=== PATIENT | male | born 1965 | race Caucasian/White ===

== ENCOUNTER 2019-12-03 08:31 | Day surgery (SDC) | payer OTHER ==
[~2019-12-03] VITALS: Ht 175.3 cm; Wt 72.9 kg
[~2019-12-03 08:31] MED LIST: AMOX500 PO; ASPI325EC; CRUTCH2 USE; HYDACE5 PO; HYDACE5325 PO; RXCLIN PO
--- NOTE | 2019-12-03 10:07 | NUR ---
Ambulatory in Day Surgery History, Chart, Medications and Allergies reviewed before start of procedure.Lungs clear T/O to Auscultation. Patient confirms NPO status and agrees with scheduled surgery. Patient reports completing Chlorhexadine shower X2 prior to admission to hospital.Surgical site prepped with 2% Chlorhexidine cloth wipe.
--- NOTE | 2019-12-03 12:16 | NUR ---
ARRIVED FROM PACU VSS DENIES PAIN WIDE AWAKE. SCANT DRAINAGE ON GAUZE
--- NOTE | 2019-12-03 12:25 | NUR ---
TURNED CARE OVER TO JESSY MEDINA
--- NOTE | 2019-12-03 12:29 | NUR ---
TOOK REPORT FROM CHINYERE OWENS. PT TOLERATING ORAL FLUIDS. PT WITH NO C/O PAIN OR NAUSEA. VSS. WILL CONTINUE TO MONITOR.
--- NOTE | 2019-12-03 13:44 | NUR ---
PT MEETS CRITIA FOR D/S. NO C/O PAIN OR NAUSEA. PT PROVIDED ORAL AND WRITTEN DC INSTRUCTIONS AND STATES NO FURTHER QUESTIONS AT THIS TIME. PT OFFERED W/C, BUT REFUSED. PT'S GAIT STEADY AND RN ASSISTED HIM TO VEHICLE.
== END 2019-12-03 13:25 | disposition home or self-care (01) ==
LOC: ORSCMMR 08:31 → ORD 10:15 → ORSCMMR 10:15
PROVIDERS: Surgery
PROC: 0HB8XZX Excision of Buttock Skin, External Approach, Diagnostic (ICD-10-PCS; principal; 2019-12-03 10:15)
DX: C44.529 Squamous cell carcinoma of skin of other part of trunk (principal)
CPT/HCPCS: 88305; 88312; 88342; J0690; J1100; J1885; J2250; J2405; J2704; J2710; J3010; J7120

== ENCOUNTER 2020-08-12 19:57 | Emergency (ER) | payer OTHER ==
[~2020-08-12] VITALS: Ht 177.8 cm; Wt 74.8 kg
[2020-08-12 21:46] LABS: BASOPHILS ABSOLUTE AUTO 0.07 K/mm3 (0.00-0.23); BASOPHILS PERCENT AUTO 0 % (0-2); EOSINOPHILS ABSOLUTE AUTO 0.19 K/mm3 (0.00-0.68); EOSINOPHILS PERCENT AUTO 1 % (0-6); Hematocrit 41.6 % (37.0-53.0); Hemoglobin 13.8 g/dL (13.5-17.5); IMMATURE GRAN ABSOLUTE AUTO 0.14 K/mm3 (0.00-0.10); IMMATURE GRAN PERCENT AUTO 1 % (0-1); LYMPHOCYTES ABSOLUTE AUTO 0.43 K/mm3 (0.84-5.20); LYMPHOCYTES PERCENT AUTO 2 % (21-46); MONOCYTES ABSOLUTE AUTO 1.28 K/mm3 (0.16-1.47); MONOCYTES PERCENT AUTO 6 % (4-13); Mean Corpuscular HGB 29.6 pg (26.0-34.0); Mean Corpuscular HGB Conc 33.2 g/dL (31.5-36.5); Mean Corpuscular Volume 89 fL (80-100); Mean Platelet Volume 9.6 fL (9.1-12.4); NEUTROPHILS PERCENT AUTO 90 % (41-73); Platelet Count 560 K/mm3 (150-400); RDW Coefficient Variation 12.6 % (11.7-14.2); RDW Standard Deviation 41.5 fL (35.1-46.3); Red Blood Cell Count 4.67 M/mm3 (4.30-5.90); White Blood Cell Count 22.01 K/mm3 (4.00-11.30)
[2020-08-12 22:02] LABS: Alanine Aminotransfer (ALT/SGP 45 U/L (12-78); Albumin, Blood 3.2 g/dL (3.4-5.0); Albumin/Globulin Ratio 0.6 (0.8-1.8); Alk Phos 201 U/L (50-136); Anion Gap 5 mmol/L (6-16); Aspartate Aminotrans (AST/SGOT 32 U/L (12-37); Bilirubin, Total 0.2 mg/dL (0.1-1.0); Blood Urea Nitrogen 24 mg/dL (8-24); Bun/Creatinine Ratio 30.7 (12.0-20.0); CO2, Blood 29 mmol/L (21-32); Calcium, Blood 9.8 mg/dL (8.5-10.1); Chloride, Blood 100 mmol/L (98-108); Creatinine, Blood 0.78 mg/dL (0.60-1.20); Globulin, Blood 5.3 g/dL (2.2-4.0); Glomerular Filtration Rate >60 (60-); Glucose, Blood 98 mg/dL (70-99); Potassium, Blood 4.5 mmol/L (3.5-5.5); Sodium, Blood 134 mmol/L (136-145); Total Protein, Blood 8.5 g/dL (6.4-8.2); Troponin I <0.015 ng/mL (0.000-0.040)
[2020-08-12] MEDS ORDERED: Percocet 5-3251 EACH PO (22:32)
== END 2020-08-12 23:06 | disposition home or self-care (01) ==
LOC: ER 19:57
PROVIDERS: Emergency Medicine
DX: R55 Syncope and collapse (principal); R07.9 Chest pain, unspecified
CPT/HCPCS: 71046; 80053; 84484; 85025; 93005; 93010; 99285-25

== ENCOUNTER 2020-09-30 07:06 | Day surgery (SDC) | payer OTHER ==
[~2020-09-30] VITALS: Ht 177.8 cm; Wt 70.1 kg
[~2020-09-30 07:06] MED LIST changes: +Percocet 5-3251 EACH PO
--- NOTE | 2020-09-30 09:16 | NUR ---
09/30/20 0916 Susu Pinto LATE ENTRY: UPON ADDMISSION TO SDU IMAGING WAS CALLED TO DO POST OPERATIVE XRAY. IMAGING ARRIVED AT 0905. IMAGING FINISHED TAKING XRAYS AT 0915. PT REPOSITIONED TO LEFT SIDE WHILE WAITING FOR RESULTS.
== END 2020-09-30 09:36 | disposition home or self-care (01) ==
LOC: ORSCSDS 07:06
PROVIDERS: Surgery
PROC: 05H533Z Insertion of Infusion Device into Right Subclavian Vein, Percutaneous Approach (ICD-10-PCS; principal; 2020-09-30 08:15)
PROC: B5161ZA Fluoroscopy of Right Subclavian Vein using Low Osmolar Contrast, Guidance (ICD-10-PCS; principal; 2020-09-30 08:15)
DX: C21.1 Malignant neoplasm of anal canal (principal); F32.9 Major depressive disorder, single episode, unspecified
CPT/HCPCS: 77001; C1788; J0690; J1642; J2250; J2704; J3010; J7120